=== PATIENT | female | born 1980 | race Two or more races ===

== ENCOUNTER 2018-06-02 15:28 | Emergency (ER) | payer OTHER ==
[~2018-06-02] VITALS: Ht 154.9 cm; Wt 86.2 kg
[2018-06-02] MEDS ORDERED: VENTOLIN HFA18 GM INH (15:43)
[2018-06-02 15:45] VITALS: BP 109/83
--- NOTE | 2018-06-02 15:45 | NUR ---
ED Nurse Note:' AMBULATED IN TO ER DUE TO ASTHMA NOT RELIEVE WITH INHALER X 5 DAYS. NO SOB AT THIS TIME.
[2018-06-02] MEDS ORDERED: Albuterol/Ipratropium 3ml neb HHN ONE ×2 (16:00→17:00)
--- NOTE | 2018-06-02 16:29 | NUR ---
ED Nurse Note: RT NOTIFIED FOR THE BREATHING TREATMENT
--- NOTE | 2018-06-02 17:21 | Emergency Room Report ---
History of Present Illness General Chief Complaint: Asthma Source: Patient Present Illness Allergies: Coded Allergies: No Known Allergies (Unverified , 06/02/18) Patient History Past Medical History: see triage record Past Surgical History: none Pertinent Family History: none Reviewed Nursing Documentation: PMH: Agreed; PSxH: Agreed Nursing Documentation-PMH Past Medical History: No History, Except For Hx Asthma: Yes Review of Systems All Other Systems: negative except mentioned in HPI Physical Exam Vital Signs Date Time Temp Pulse Resp B/P (MAP) Pulse Ox O2 Delivery O2 Flow Rate FiO2 06/02/18 15:40 98.1 92 16 109/83 97 Room Air 06/02/18 16:37 21 Medical Decision Making PA Attestation Dr. Koch is my supervising Physician whom patient management has been discussed with. Diagnostic Impression: Primary Impression: Atypical pneumonia ER Course Pt. presents to the ED c/o cough congestion bodyaches, fevers, chills and headaches x [ ] Ddx considered but are not limited to URI, pneumonia, PE, strep pharyngitis, meningitis. Vital signs: Pt. is afebrile, the remaining VS are WNL H&PE are most consistent with URI- no meningeal signs, oropharynx is not involved, no evidence of bacterial infection at this time. ORDERS: none required at this time, the diagnosis is clinical ED INTERVENTIONS: None required at this time. --PT. EDUCATION: Discussed antibiotic resistance with inappropriate prescribing of antibiotics for viral illnesses. Discussed signs and symptoms to indicate viral illness versus bacterial illness. DISCHARGE: At this time pt. is stable for d/c to home. Will provide printed patient care instructions, and any necessary prescriptions. Care plan and follow up instructions have been discussed with the patient prior to discharge. Last Vital Signs Date Time Temp Pulse Resp B/P (MAP) Pulse Ox O2 Delivery O2 Flow Rate FiO2 06/02/18 17:15 89 20 99 Room Air 21 06/02/18 15:45 98.1 109/83 Disposition: HOME, SELF-CARE Condition: Stable Referrals: [facility]ERR[facility] (PCP) Departure Forms: Return to Work Return to Work Date: Jun 05, 2018 Work Restrictions: None Other Restrictions: May return Sooner if Symptoms have resolved. Return to Full Activity: Jun 05, 2018 Patient Instructions: Acute Bronchitis, [id number], Asthma, Adult Additional Instructions: Take medications as directed. Follow up with a Primary Care Provider in 3-5 days, even if your symptoms have resolved. --Please review list of primary care clinics, if you do not already have a primary care provider Return sooner to ED if new symptoms occur, or current symptoms become worse. Do not drink alcohol, drive, or operate heavy machinery while taking Cough Syrup as this may cause drowsiness. - Please note that this Emergency Department Report was dictated using [employer] gift technology software, occasionally this can lead to erroneous entry secondary to interpretation by the dictation equipment. Bonnie Bhandari Jun 02, 2018 17:21
[2018-06-02] MEDS ORDERED: ZITHROMAX250 MG ORAL (17:24)
[2018-06-02] MEDS ORDERED: PREDNISONE20 MG ORAL (17:24)
[2018-06-02] MEDS ORDERED: PROMETHAZINE-C118 M1 ORAL (17:24)
[2018-06-02] MEDS ORDERED: ALBUTEROL2.5 MG/3 M INH (17:24)
[2018-06-02] MEDS ORDERED: COMPACT COMPRE1 EACH MC (17:24)
[2018-06-02 17:38] VITALS: BP 109/83
--- NOTE | 2018-06-02 17:39 | NUR ---
ER Nurse Note: A/OX4. PT IS CLEARED BY MARTHA CIFUENTES. DC INSTRUCTION AND PRESCRIPTIONS GIVEN, PT VERBALIZED UNDERSTSANDING. IV/ID WRISTBAND REMOVED. ALL BELONGINGS TAKEN BY PT. DENIES ANY PAIN AT THIS TIME. PT AMBULATED OUT OF ER WITH STEADY GAIT.
== END 2018-06-02 17:39 | disposition home or self-care (01) ==
LOC: EMR 16:43
DX: J18.9 Pneumonia, unspecified organism (principal); J45.909 Unspecified asthma, uncomplicated
CPT/HCPCS: 94640; 94664; 99284; J7620